=== PATIENT | female | born 1975 | race Hispanic/Latino ===

== ENCOUNTER 2022-07-13 20:40 | Emergency (ER) | payer BC, OTHER ==
[~2022-07-13] VITALS: Ht 157.5 cm; Wt 110.2 kg
[2022-07-13] MEDS: BACITRACIN ZINC 0.9GM TP ONE (21:18)
[2022-07-13] MEDS: TETANUS/DIPHTHERIA TOX ADULT 0.5 ML SYR IM STA (21:34)
[2022-07-13] MEDS ORDERED: BACITRACIN ZINC 0.9GM TP ONE ×2 (21:36→22:24)
[2022-07-13] MEDS ORDERED: TETANUS/DIPHTHERIA TOX ADULT 0.5 ML SYR ONE (21:36)
[2022-07-13] MEDS ORDERED: ACETAMINOPHEN500 MG PO (22:03)
[2022-07-13] MEDS ORDERED: IBUPROFEN200 MG PO (22:03)
[2022-07-13] MEDS ORDERED: DOXYCYCLINE HY100 MG PO (22:03)
[2022-07-13] MEDS: MUPIROCIN 2% OINT 22 GM TUBE TOP ONE (22:44)
[2022-07-13 22:49] VITALS: BP 152/89
== END 2022-07-13 22:18 | disposition home or self-care (01) ==
LOC: FSED 20:46
DX: S61.211A Laceration without foreign body of left index finger without damage to nail, initial encounter (principal); S61.213A Laceration without foreign body of left middle finger without damage to nail, initial encounter; W25.XXXA Contact with sharp glass, initial encounter; Y92.89 Other specified places as the place of occurrence of the external cause; E78.5 Hyperlipidemia, unspecified; E03.9 Hypothyroidism, unspecified
CPT/HCPCS: 90471; 90714; 99284